=== PATIENT | female | born 1940 | race Caucasian/White ===

== ENCOUNTER 2023-09-01 14:53 | Emergency (ER) | payer OTHER ==
[~2023-09-01] VITALS: Ht 160 cm; Wt 85.0 kg
[~2023-09-01 14:53] MED LIST: ASPI-492 OR; ATOR10TA OR; DULO60CA41 OR; GABA-1250 OR; PRO20T GT; TRAM50TA2 OR; [UNRECOGNIZED DRUG - OTHER]
[2023-09-01 15:30] VITALS: PULSE 89; RESP 17; TEMP 99; O2SAT 94
[2023-09-01] MEDS: TETANUS-DIPTH-ACEL PERTUSSIS 0.5ML SYR Tdap IM ONE (16:28)
[2023-09-01] MEDS: ACETAMINOPHEN 325 MG TAB PO ONE (16:32)
[2023-09-01 17:30] VITALS: BP 140/60; PULSE 93; RESP 12; O2SAT 95
== END 2023-09-01 17:44 | disposition home or self-care (01) ==
LOC: ER 14:53
DX: S00.83XA Contusion of other part of head, initial encounter (principal); M54.2 Cervicalgia; I10 Essential (primary) hypertension; Z79.82 Long term (current) use of aspirin; Z79.899 Other long term (current) drug therapy; W18.39XA Other fall on same level, initial encounter; Y93.89 Activity, other specified; Y92.89 Other specified places as the place of occurrence of the external cause; Y99.8 Other external cause status
CPT/HCPCS: 70450; 70480; 72125; 90471; 90715